=== PATIENT | male | born 1995 | race Caucasian/White ===

== ENCOUNTER 2023-10-29 11:57 | Emergency (ER) | payer BC, OTHER ==
[2023-10-29 12:10] VITALS: BP 132/74; PULSE 103; RESP 32; TEMP 98.2; BMI 25.0
[2023-10-29] MEDS ORDERED: IBUPROFEN 600 MG TABLET (FP) PO ONE ×2 (13:12→13:19)
[2023-10-29] MEDS ORDERED: ACETAMINOPHEN 500 MG TABLET (FP) PO ONE (13:12)
[2023-10-29] MEDS ORDERED: ACETAMINOPHEN 500 MG TABLET (FP) ONE (13:20)
[2023-10-29] MEDS ORDERED: OSELTAMIVIR PHOSPHATE 75 MG CAPSULE PO ONE (14:41)
[2023-10-29] MEDS ORDERED: OSELTAMIVIR PHOSPHATE 75 MG CAPSULE ONE (14:47)
== END 2023-10-29 14:50 | disposition home or self-care (01) ==
LOC: JERFT 11:57
DX: R09.81 Nasal congestion (principal); R68.83 Chills (without fever); R05.9 Cough, unspecified; R42 Dizziness and giddiness; R07.9 Chest pain, unspecified; R20.0 Anesthesia of skin; J10.1 Influenza due to other identified influenza virus with other respiratory manifestations; R51.9 Headache, unspecified; F41.0 Panic disorder [episodic paroxysmal anxiety]; Z20.822 Contact with and (suspected) exposure to COVID-19
CPT/HCPCS: 0241U-QW; 71046-TC-FY; 93005; 93010; 99285-25